=== PATIENT | female | born 1990 | race Two or more races ===

== ENCOUNTER 2019-03-06 13:04 | Emergency (ER) | payer OTHER ==
[~2019-03-06] VITALS: Ht 175.3 cm; Wt 105.7 kg
[~2019-03-06 13:04] MED LIST: PRENATAL1 TAB
== END 2019-03-06 19:27 | disposition home or self-care (01) ==
LOC: ER 13:04
DX: R00.2 Palpitations (principal)

== ENCOUNTER 2020-02-29 10:40 | Emergency (ER) | payer OTHER ==
[~2020-02-29] VITALS: Ht 170.2 cm; Wt 104.3 kg
[2020-02-29] MEDS ORDERED: VISTARIL25 MG PO (14:18)
[2020-02-29] MEDS ORDERED: PROPRANOLOL HCL10 MG PO (14:18)
== END 2020-02-29 15:21 | disposition home or self-care (01) ==
LOC: ER 10:40
DX: R00.2 Palpitations (principal); F06.4 Anxiety disorder due to known physiological condition; F41.0 Panic disorder [episodic paroxysmal anxiety]

== ENCOUNTER 2020-06-07 01:29 | Emergency (ER) | payer OTHER ==
[~2020-06-07] VITALS: Ht 167.6 cm; Wt 97.5 kg
[~2020-06-07 01:29] MED LIST changes: +PROPRANOLOL HCL10 MG PO; +VISTARIL25 MG PO
[2020-06-07] MEDS ORDERED: CANDESARTAN CILE8 M1 (01:49)
[2020-06-07] MEDS ORDERED: PEPCID40 MG PO (06:19)
[2020-06-07] MEDS ORDERED: MOBIC15 MG PO (06:19)
== END 2020-06-07 06:30 ==
LOC: ER 01:29
DX: M94.0 Chondrocostal junction syndrome [Tietze] (principal); R00.2 Palpitations

== ENCOUNTER 2022-03-11 14:49 | Emergency (ER) | payer OTHER ==
[~2022-03-11] VITALS: Ht 167.6 cm; Wt 59.4 kg
[~2022-03-11 14:49] MED LIST changes: +CANDESARTAN CILE8 M1; +MOBIC15 MG PO; +PEPCID40 MG PO
[2022-03-11] MEDS ORDERED: TOPROL XL25 M1 PO (17:03)
== END 2022-03-11 19:05 | disposition home or self-care (01) ==
LOC: ER 14:49
DX: I10 Essential (primary) hypertension (principal)